=== PATIENT | male | born 1960 | race Caucasian/White ===

== ENCOUNTER 2021-04-08 05:06 | Inpatient (IN) | payer SELFPAY ==
[~2021-04-08] VITALS: Ht 172.7 cm; Wt 66.2 kg
[2021-04-08] MEDS ORDERED: ACETAMINOPHEN 325MG TABLET PO ONE (06:15)
[2021-04-08] MEDS ORDERED: CEFTRIAXONE 1 G PREMIX 50 ML IV ONE (06:15)
[2021-04-08] MEDS ORDERED: SODIUM CHLORIDE 0.9% 1000ML BAG (SEPSIS BOLUS) IV ONE (06:15)
[2021-04-08 07:15] LABS: BASOPHILS % 0.2 % (0.0-2.0); HEMOGLOBIN. 14.7 g/dL (14.0-18.0); LYMPHOCYTES % 15.8 % (20.0-50.0); MEAN CORPUSCULAR HEMOGLOBIN 30.8 pg (28.0-32.0); MEAN CORPUSCULAR VOLUME 86.1 fL (80.0-94.0); MEAN PLATELET VOLUME 10.5 fl (7.4-10.4); PLATELET 112 x1000/uL (130-400); RED BLOOD CELL COUNT 4.77 mill/uL (4.7-6.1); RED CELL DISTRIBUTION WIDTH 13.2 % (11.6-14.6)
[2021-04-08 07:19] LABS: CLARITY URINE CLEAR (CLEAR); COLOR URINE YELLOW (YELLOW); KETONES URINE NEGATIVE (NEGATIVE); LEUKOCYTE ESTERASE URINE NEGATIVE (NEGATIVE); NITRITE URINE NEGATIVE (NEGATIVE); OCCULT BLOOD URINE 1+ (NEGATIVE); PROTEIN URINE 1+ (NEGATIVE); SPECIFIC GRAVITY URINE 1.006 (1.005-1.030); UROBILINOGEN URINE 0.2 E.U./dL (0.2-1.0)
[2021-04-08 07:22] LABS: CHLORIDE 100 mEq/L (98-107)
[2021-04-08] MEDS ORDERED: POTASSIUM CHLORIDE 20MEQ TABLET SR PO ONE (08:00)
[2021-04-08] MEDS ORDERED: AZITHROMYCIN 500 MG in DEXT 5% WATER 250 ML IV ONE (08:00)
[2021-04-08] MEDS ORDERED: ACET650T37 MT (16:15)
[2021-04-08] MEDS ORDERED: PANT40TA51 MT (16:15)
[2021-04-08] MEDS ORDERED: DEXA6TAB MT (16:15)
[2021-04-08] MEDS ORDERED: ASPI-864 MT (16:15)
[2021-04-08] MEDS: ACETAMINOPHEN 325MG TABLET PO PRN (16:22)
[2021-04-08] MEDS: ENOXAPARIN 40MG/0.4ML SYR SUBCUT SCH (17:12)
[2021-04-08 23:58] VITALS: BP 119/72
[2021-04-09] MEDS ORDERED: BISM262T15 MT (01:05)
[2021-04-09 07:52] LABS: BASOPHILS % 0.3 % (0.0-2.0); HEMATOCRIT. 44.5 % (42.0-52.0); HEMOGLOBIN. 15.3 g/dL (14.0-18.0); LYMPHOCYTES % 24.7 % (20.0-50.0); MEAN CORPUSCULAR HEMOGLOBIN 30.3 pg (28.0-32.0); MEAN CORPUSCULAR VOLUME 88.6 fL (80.0-94.0); MEAN PLATELET VOLUME 10.6 fl (7.4-10.4); PLATELET 115 x1000/uL (130-400); RED BLOOD CELL COUNT 5.03 mill/uL (4.7-6.1); RED CELL DISTRIBUTION WIDTH 13.5 % (11.6-14.6)
[2021-04-09 08:00] VITALS: BP 94/62
[2021-04-09] MEDS ORDERED: PNEUMOCOCCAL 23-VAL P-SAC VAC 0.5 ML IM ONE (08:00)
[2021-04-09] MEDS: ACETAMINOPHEN 325MG TABLET PO PRN ×2 (08:12→17:13)
[2021-04-09 08:13] LABS: CHLORIDE 103 mEq/L (98-107)
[2021-04-09 12:00] VITALS: BP 98/60
[2021-04-09] MEDS ORDERED: MORPHINE SULFATE 2 MG/ML CPJ (NOT FOR IM USE) IV NR ×2 (13:30→14:15)
[2021-04-09 14:14] VITALS: BP 123/63
[2021-04-09 16:00] VITALS: BP 99/60
[2021-04-09] MEDS: ENOXAPARIN 40MG/0.4ML SYR SUBCUT SCH (17:03)
[2021-04-09 20:00] VITALS: BP 90/73
[2021-04-10 00:05] VITALS: BP 113/68
[2021-04-10 04:00] VITALS: BP 118/73
[2021-04-10 08:00] VITALS: BP 105/65
[2021-04-10] MEDS: ACETAMINOPHEN 325MG TABLET PO PRN ×2 (08:53→17:27)
[2021-04-10 12:00] VITALS: BP 103/59
[2021-04-10 14:21] LABS: CLARITY URINE CLEAR (CLEAR); COLOR URINE YELLOW (YELLOW); KETONES URINE NEGATIVE (NEGATIVE); LEUKOCYTE ESTERASE URINE NEGATIVE (NEGATIVE); NITRITE URINE NEGATIVE (NEGATIVE); OCCULT BLOOD URINE TRACE (NEGATIVE); PH URINE 6.5 (4.5-8.0); PROTEIN URINE NEGATIVE (NEGATIVE); SPECIFIC GRAVITY URINE 1.004 (1.005-1.030); UROBILINOGEN URINE 0.2 E.U./dL (0.2-1.0)
[2021-04-10] MEDS ORDERED: MORPHINE SULFATE 2 MG/ML CPJ (NOT FOR IM USE) IV NR (14:30)
[2021-04-10] MEDS: ENOXAPARIN 40MG/0.4ML SYR SUBCUT SCH (15:12)
[2021-04-10 16:00] VITALS: BP 127/83
[2021-04-10] MEDS: MORPHINE SULFATE 2 MG/ML CPJ (NOT FOR IM USE) IV PRN (19:57)
[2021-04-10 20:00] VITALS: BP 106/61
[2021-04-11 00:09] VITALS: BP 119/63
[2021-04-11] MEDS: ACETAMINOPHEN 325MG TABLET PO PRN ×3 (01:55→21:33)
[2021-04-11 04:00] VITALS: BP 109/62
[2021-04-11 08:00] VITALS: BP 96/64
[2021-04-11 08:56] LABS: BASOPHILS % 0.2 % (0.0-2.0); HEMATOCRIT. 42.5 % (42.0-52.0); HEMOGLOBIN. 14.5 g/dL (14.0-18.0); LYMPHOCYTES % 21.9 % (20.0-50.0); MEAN CORPUSCULAR HEMOGLOBIN 30.1 pg (28.0-32.0); MEAN CORPUSCULAR VOLUME 88.2 fL (80.0-94.0); MEAN PLATELET VOLUME 9.7 fl (7.4-10.4); MONOCYTES % 10.7 % (2.0-8.0); NEUTROPHILS % 67.2 % (40.0-76.0); PLATELET 136 x1000/uL (130-400); RED BLOOD CELL COUNT 4.82 mill/uL (4.7-6.1); RED CELL DISTRIBUTION WIDTH 13.6 % (11.6-14.6)
[2021-04-11 09:01] LABS: CHLORIDE 100 mEq/L (98-107)
[2021-04-11 12:00] VITALS: BP 117/59
[2021-04-11] MEDS: MORPHINE SULFATE 2 MG/ML CPJ (NOT FOR IM USE) IV PRN ×3 (13:04→21:32)
[2021-04-11 16:00] VITALS: BP 104/63
[2021-04-11] MEDS: ENOXAPARIN 40MG/0.4ML SYR SUBCUT SCH (17:11)
[2021-04-11 20:00] VITALS: BP 141/81
[2021-04-12] VITALS: BP 104/58
[2021-04-12 04:00] VITALS: BP 110/58
[2021-04-12] MEDS: ACETAMINOPHEN 325MG TABLET PO PRN (05:29)
[2021-04-12] MEDS: MORPHINE SULFATE 2 MG/ML CPJ (NOT FOR IM USE) IV PRN (06:11)
[2021-04-12 08:00] VITALS: BP 110/74
[2021-04-12 12:00] VITALS: BP 99/57
[2021-04-12] MEDS: ENOXAPARIN 40MG/0.4ML SYR SUBCUT SCH (15:01)
[2021-04-12 16:00] VITALS: BP 105/54
[2021-04-12] MEDS: ACETAMINOPHEN 500MG TABLET PO PRN (16:33)
[2021-04-12 20:00] VITALS: BP 100/65
[2021-04-13] MEDS: MORPHINE SULFATE 2 MG/ML CPJ (NOT FOR IM USE) IV PRN ×3 (00:22→18:10)
[2021-04-13 00:34] VITALS: BP 136/81
[2021-04-13 04:00] VITALS: BP 104/61
[2021-04-13 07:40] LABS: T4 FREE 1.2 ng/dL (0.76-1.46)
[2021-04-13 12:00] VITALS: BP 96/65
[2021-04-13] MEDS ORDERED: NALOXONE HCL 0.4MG/ML VIAL IV PRN (14:00)
[2021-04-13 16:00] VITALS: BP 110/68
[2021-04-13] MEDS: ENOXAPARIN 40MG/0.4ML SYR SUBCUT SCH (16:00)
[2021-04-13 20:00] VITALS: BP 116/68
[2021-04-13] MEDS: ACETAMINOPHEN 500MG TABLET PO PRN (21:16)
[2021-04-14] VITALS: BP 100/65
[2021-04-14 04:00] VITALS: BP 103/70
[2021-04-14] MEDS: ACETAMINOPHEN 500MG TABLET PO PRN ×2 (04:50→21:55)
[2021-04-14 08:00] VITALS: BP 116/69
[2021-04-14 08:43] LABS: BASOPHILS % 0.4 % (0.0-2.0); EOSINOPHILS % 1.3 % (0.0-5.0); HEMATOCRIT. 40.8 % (42.0-52.0); HEMOGLOBIN. 13.9 g/dL (14.0-18.0); LYMPHOCYTES % 22.6 % (20.0-50.0); MEAN PLATELET VOLUME 9.6 fl (7.4-10.4); MONOCYTES % 12.3 % (2.0-8.0); NEUTROPHILS % 63.4 % (40.0-76.0); PLATELET 190 x1000/uL (130-400); RED BLOOD CELL COUNT 4.63 mill/uL (4.7-6.1); RED CELL DISTRIBUTION WIDTH 13.3 % (11.6-14.6)
[2021-04-14 08:55] LABS: CHLORIDE 103 mEq/L (98-107)
[2021-04-14] MEDS: MORPHINE SULFATE 2 MG/ML CPJ (NOT FOR IM USE) IV PRN ×2 (10:20→14:54)
[2021-04-14 12:00] VITALS: BP 149/78
[2021-04-14] MEDS: ENOXAPARIN 40MG/0.4ML SYR SUBCUT SCH (15:00)
[2021-04-14 16:00] VITALS: BP 112/73
[2021-04-14 20:00] VITALS: BP 107/60
[2021-04-15 00:05] VITALS: BP 100/60
[2021-04-15 04:00] VITALS: BP 109/74
[2021-04-15] MEDS: ACETAMINOPHEN 500MG TABLET PO PRN (04:54)
[2021-04-15 08:00] VITALS: BP 112/71
[2021-04-15 12:45] VITALS: BP 123/74
[2021-04-15 14:41] VITALS: BP 123/75
[2021-04-15 16:00] VITALS: BP 117/81
[2021-04-15] MEDS: ENOXAPARIN 40MG/0.4ML SYR SUBCUT SCH (16:00)
== END 2021-04-15 17:00 | disposition home or self-care (01) | DRG 720 ==
LOC: ER 05:06 → MICUSO 08:33 → EDBEDREQTM 08:49 → 7WST 23:19
PROVIDERS: ADMIT Internal Medicine; ATTEND Internal Medicine
DX: A41.89 Other specified sepsis (principal); J12.82 Pneumonia due to coronavirus disease 2019; D69.6 Thrombocytopenia, unspecified; U07.1 COVID-19; E87.6 Hypokalemia; R00.1 Bradycardia, unspecified; D72.821 Monocytosis (symptomatic); R80.9 Proteinuria, unspecified; R74.01 Elevation of levels of liver transaminase levels; R33.9 Retention of urine, unspecified; Z78.9 Other specified health status; Z79.899 Other long term (current) drug therapy
CPT/HCPCS: 36415; 71045; 74176; 80048; 80053; 81003; 82728; 83605; 83615; 84145; 84153; 84439; 84443; 84481; 85025; 85379; 86141; 87426; 93005; 99285; C9803; J0456; J0696; J1650; J2270; J7030; J7060; U0003; U0005; A4315; G0103

== ENCOUNTER 2021-04-25 08:31 | Emergency (ER) | payer SELFPAY ==
[~2021-04-25] VITALS: Ht 165.1 cm; Wt 68.0 kg
[~2021-04-25 08:31] MED LIST: ACET650T37 MT; ASPI-864 MT; DEXA6TAB MT; PANT40TA51 MT
[2021-04-25 09:59] VITALS: BP 116/68
== END 2021-04-25 10:01 | disposition home or self-care (01) ==
LOC: ER 09:03
DX: R33.9 Retention of urine, unspecified (principal); Z46.6 Encounter for fitting and adjustment of urinary device; Z86.19 Personal history of other infectious and parasitic diseases; Z79.82 Long term (current) use of aspirin
CPT/HCPCS: 99281